=== PATIENT | male | born 1980 | race Caucasian/White ===

== ENCOUNTER 2021-12-03 09:26 | Emergency (ER) | payer OTHER, SELFPAY ==
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
[2021-12-03 09:39] VITALS: BP 120/80; PULSE 89; RESP 18; TEMP 36.7; O2SAT 97; BMI 26.5
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
== END 2021-12-03 10:36 | disposition home or self-care (01) ==
PROVIDERS: Emergency Provider Emergency Medicine
DX: M25.461 Effusion, right knee (principal); M54.50 Low back pain, unspecified; M25.561 Pain in right knee
CPT/HCPCS: 72100; 99283

== ENCOUNTER 2022-03-03 21:43 | Emergency (ER) | payer OTHER, SELFPAY ==
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
--- NOTE | ~2022-03-03 | XR_ITS ---
EXAMINATION: XR KNEE, RIGHT CLINICAL INFORMATION: Right knee pain COMPARISON: None TECHNIQUE: Four views of the right knee. FINDINGS: 2 bony fragments are seen that may be within the knee joint, one anteriorly measuring 7 mm and a larger posteriorly measuring 2.3 x 1.6 x 0.5 cm. A small joint effusion is present. Joint spaces are well preserved. No fractures are seen. Some mild degenerative changes are present with an osteophyte arising from the lateral tibial plateau. There is a lucency seen in the lateral condyle which could be the source of an osteochondral defect accounting for some of this. XR/XR knee RT 4V IMPRESSION: Mild degenerative changes. Suspect osteochondral defect lateral femoral condyle with intra-articular osseous densities and small joint effusion
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
[2022-03-03 22:06] VITALS: BP 105/72; PULSE 74; RESP 18; TEMP 36.7; O2SAT 98; BMI 27.8
[2022-03-03 22:39] LABS: MANUAL DIFF FLAG NO
[2022-03-03 22:50] LABS: Basophils Absolute Auto 0.1 X10*3/uL (0.0-0.2); Basophils Percent Auto 0.6 % (0-2); Eosinophils Absolute Auto 0.2 X10*3/uL (0.0-0.4); Eosinophils Percent Auto 1.4 % (0-4); Hematocrit 41.4 % (42.0-52.0); Hemoglobin 14.6 g/dl (14.0-18.0); Imm Gran Abs Auto 0.02 X10*3/uL (0.00-0.03); Imm Gran Pct Auto 0.2 % (0.0-0.4); Lymphocytes Absolute Auto 1.7 X10*3/uL (1.2-4.9); Lymphocytes Percent Auto 15.7 % (20-40); Mean Corpuscular HGB Conc 35.3 g/dl (31.0-36.0); Mean Corpuscular Hemoglobin 29.7 pg (27.0-33.0); Mean Corpuscular Volume 84.3 fL (80.0-98.0); Monocytes Absolute Auto 0.5 X10*3/uL (0.1-1.2); Monocytes Percent Auto 4.1 % (2-11); Neutrophils Absolute Auto 8.7 x10*3/uL (2.0-8.3); Platelet Count 267 X10*3/uL (160-400); Red Blood Count 4.91 X10*6/uL (4.60-5.80); Red Cell Distribution Width 11.8 % (11.0-16.0); White Blood Count 11.1 X10*3/uL (4.8-10.8)
[2022-03-03 22:58] LABS: Alanine Aminotransferase 16 U/L (0-40); Albumin Level 4.8 g/dL (3.5-5.0); Alkaline Phosphatase 75 U/L (39-117); Anion Gap 14 (12-20); Aspartate Amino Transferase 19 U/L (5-37); Bilirubin Total 0.4 mg/dL (0.0-1.0); Blood Urea Nitrogen 16 mg/dL (9-16); Calcium 9.2 mg/dL (8.4-10.2); Carbon Dioxide 27 mmol/L (22-29); Chloride 106 mmol/L (96-108); Creatinine Clr Calc Pharmacy 72.8; Estimated Glomerular Filt Rate > 60; Glucose Random 104 mg/dL (60-115); Potassium 4.2 mmol/L (3.3-5.1); Sodium 143 mmol/L (135-145); Total Protein 7.9 g/dL (6.5-8.0)
[2022-03-03 23:12] LABS: INTERNATIONAL NORM RATIO 1.1 (0.9-1.1); Prothrombin Time 12.8 SEC (10.0-13.1)
[2022-03-03 23:14] LABS: Partial Thromboplastin Time 31.2 SEC (26.0-36.4)
[2022-03-03] MEDS: iohexoL 350 MG/ML 100 ML INFUS..BTL IV (23:46)
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
[2022-03-04] MEDS: Ketorolac Tromethamine 30 MG/ML VIAL IVPUSH (01:22)
[2022-03-04] MEDS: predniSONE 20 MG TABLET 60 MG PO (01:22)
--- NOTE | 2022-03-04 01:25 | PC.NURSE ---
medicated per provider order, knee wrapped by tech, crutches training provided.
== END 2022-03-04 01:45 | disposition home or self-care (01) ==
PROVIDERS: Physician Assistant; Emergency Provider Internal Medicine
DX: S83.8X1A Sprain of other specified parts of right knee, initial encounter (principal); S29.9XXA Unspecified injury of thorax, initial encounter; R07.89 Other chest pain; R51.9 Headache, unspecified; M54.2 Cervicalgia; M25.561 Pain in right knee; V43.52XA Car driver injured in collision with other type car in traffic accident, initial encounter; Y93.9 Activity, unspecified; Y92.410 Unspecified street and highway as the place of occurrence of the external cause; Y99.9 Unspecified external cause status; Z79.899 Other long term (current) drug therapy
CPT/HCPCS: 36415; 70450; 71260; 72125; 73564; 74177; 80053; 85025; 85610; 85730; 96374; 99283; 99284; J1885; Q9967